=== PATIENT | female | born 1980 | race Two or more races ===

== ENCOUNTER 2018-01-22 12:19 | Emergency (ER) | payer OTHER ==
[~2018-01-22] VITALS: Ht 160 cm; Wt 64.6 kg
[2018-01-22 12:27] VITALS: BP 103/69
== END 2018-01-22 13:31 | disposition home or self-care (01) ==
LOC: ED 12:19
DX: B34.9 Viral infection, unspecified (principal)
CPT/HCPCS: Q0162

== ENCOUNTER 2018-08-09 07:46 | Emergency (ER) | payer OTHER ==
[~2018-08-09] VITALS: Ht 160 cm; Wt 66.2 kg
[2018-08-09 07:58] VITALS: Ht 160 cm; Wt 66.2 kg
[2018-08-09 09:05] LABS: BASOPHIL % 0.5 % (0-2); PLATELET COUNT 244 x10^3mcL (130-400); RED CELL DISTRIBUTION WIDTH 12.6 % (11.5-14.5)
[2018-08-09 09:07] LABS: CALCIUM 9.1 mg/dL (8.5-10.1); CARBON DIOXIDE 30.4 mmol/L (21-32); CHLORIDE SERUM 106 mmol/L (98-107); CREATININE SERUM 0.7 mg/dL (0.6-1.0); GFR1 > 60 mL/min; GLUCOSE SERUM 101 mg/dL (74-106); POTASSIUM SERUM 3.8 mmol/L (3.5-5.1); SODIUM SERUM 142 mmol/L (136-145)
[2018-08-09 09:11] LABS: ALBUMIN 4.1 g/dL (3.4-5.0); ALKALINE PHOSPHATASE 42 U/L (46-116); ALT/SGPT 32 U/L (14-59); AST/SGOT 13 U/L (15-37); BILIRUBIN TOTAL 0.9 mg/dL (0.20-1.00); TOTAL PROTEIN, SERUM 7.5 g/dL (6.4-8.2)
[2018-08-09 09:19] LABS: FREE T4 0.92 ng/dL (0.76-1.46); FREE THYROXINE INDEX 2.4 ug/dL (1.4-4.5)
[2018-08-09 09:55] LABS: T3 TOTAL 1.05 ng/mL
[2018-08-09 10:00] LABS: ERYTHROCYTE SED RATE 10 mm/hr (0-20)
[2018-08-09 11:26] VITALS: BP 128/72
== END 2018-08-09 11:26 | disposition home or self-care (01) ==
LOC: ED 07:46
PROVIDERS: Emergency Medicine
DX: M25.50 Pain in unspecified joint (principal); M54.2 Cervicalgia
CPT/HCPCS: 36415; 84439

== ENCOUNTER 2019-04-24 07:37 | Emergency (ER) | payer OTHER ==
[~2019-04-24] VITALS: Ht 160 cm; Wt 64.9 kg
[2019-04-24 07:46] VITALS: Ht 160 cm; Wt 64.9 kg
[2019-04-24 08:34] LABS: BASOPHIL % 0.4 % (0-2); PLATELET COUNT 246 x10^3mcL (130-400); RED CELL DISTRIBUTION WIDTH 13.4 % (11.5-14.5)
[2019-04-24 08:40] LABS: CALCIUM 9.1 mg/dL (8.5-10.1); CARBON DIOXIDE 30.8 mmol/L (21-32); CHLORIDE SERUM 106 mmol/L (98-107); CREATININE SERUM 0.6 mg/dL (0.6-1.0); GFR1 > 60 mL/min; GLUCOSE SERUM 101 mg/dL (74-106); POTASSIUM SERUM 3.9 mmol/L (3.5-5.1); SODIUM SERUM 139 mmol/L (136-145)
[2019-04-24 08:41] LABS: microscopic required? NO
[2019-04-24 08:44] LABS: ALBUMIN 3.7 g/dL (3.4-5.0); ALKALINE PHOSPHATASE 38 U/L (46-116); ALT/SGPT 22 U/L (14-59); AST/SGOT 13 U/L (15-37); BILIRUBIN TOTAL 0.76 mg/dL (0.20-1.00); TOTAL PROTEIN, SERUM 6.8 g/dL (6.4-8.2)
[2019-04-24 08:46] LABS: UA SPECIFIC GRAVITY 1.015 (1.005-1.035); urine erythrocyte NEGATIVE (NEGATIVE)
[2019-04-24 08:54] LABS: FREE T4 1.1 ng/dL (0.76-1.46); FREE THYROXINE INDEX 2.6 ug/dL (1.4-4.5); T4(THYROXINE) 7.6 ug/dL (4.7-13.3)
[2019-04-24 09:01] LABS: T3 TOTAL 1.01 ng/mL
[2019-04-24 10:37] VITALS: BP 132/86
== END 2019-04-24 10:37 | disposition home or self-care (01) ==
LOC: ED 07:37
PROVIDERS: Emergency Medicine
DX: R06.00 Dyspnea, unspecified (principal); F41.9 Anxiety disorder, unspecified; R07.0 Pain in throat; R06.02 Shortness of breath
CPT/HCPCS: 36415; 84439; J7030; Q9967

== ENCOUNTER 2020-05-11 10:31 | Emergency (ER) | payer OTHER ==
[~2020-05-11] VITALS: Ht 162.6 cm; Wt 65.8 kg
[2020-05-11 10:38] VITALS: BP 100/66; Ht 162.6 cm; Wt 65.8 kg
[2020-05-11] MEDS ORDERED: DIFLUCAN150 MG PO (11:52)
[2020-05-11] MEDS ORDERED: [UNRECOGNIZED DRUG - OTHER] (12:11)
[2020-05-11] MEDS ORDERED: KEF500 PO (12:11)
[2020-05-11] MEDS ORDERED: FLONASE SENSIM5.9 ML NS (12:11)
== END 2020-05-11 12:17 | disposition home or self-care (01) ==
LOC: ED 10:31
DX: B37.3 Candidiasis of vulva and vagina (principal)